=== PATIENT | female | born 1955 | race Caucasian/White ===

== ENCOUNTER 2017-07-04 11:32 | Inpatient (IN) | payer OTHER ==
[~2017-07-04] VITALS: Ht 157.5 cm; Wt 59.6 kg
[2017-07-04] MEDS ORDERED: COR3 PO (13:14)
[2017-07-04] MEDS ORDERED: PHOSLO667 MG PO (13:14)
[2017-07-04] MEDS ORDERED: NEPHRO-VITE VITA1 EA PO (13:15)
[2017-07-04] MEDS ORDERED: JANUVIA100 M1 PO (13:15)
[2017-07-04] MEDS ORDERED: METFORMIN500 M1 PO (13:15)
[2017-07-04] MEDS ORDERED: MOT600 PO (13:16)
[2017-07-04] MEDS ORDERED: D3-50001 TAB PO (13:16)
[2017-07-04] MEDS ORDERED: NOR10 PO (13:17)
[2017-07-04 13:29] LABS: BASOPHIL % 0.6 % (0-2); PLATELET COUNT 219 x10^3mcL (130-400)
[2017-07-04 13:39] LABS: RED CELL DISTRIBUTION WIDTH 14.7 % (11.5-14.5)
[2017-07-04 13:50] LABS: ALBUMIN 3.4 g/dL (3.4-5.0); BILIRUBIN TOTAL 0.5 mg/dL (0.20-1.00); CALCIUM 9.2 mg/dL (8.5-10.1); CARBON DIOXIDE 32.9 mmol/L (21-32); POTASSIUM SERUM 4.4 mmol/L (3.5-5.1); TOTAL PROTEIN, SERUM 7.3 g/dL (6.4-8.2)
[2017-07-04 13:57] LABS: CREATININE SERUM 5.6 mg/dL (0.6-1.0)
[2017-07-04 13:58] LABS: FREE T4 1.26 ng/dL (0.76-1.46); FREE THYROXINE INDEX 3.1 ug/dL (1.4-4.5); T4(THYROXINE) 8.9 ug/dL (4.7-13.3)
[2017-07-04 14:21] LABS: T3 TOTAL 0.88 ng/mL
[2017-07-04 14:24] LABS: MAGNESIUM 2.3 mg/dL (1.8-2.4); PHOSPHOROUS 3.1 mg/dL (2.5-4.9)
[2017-07-04 15:29] VITALS: BP 158/60
[2017-07-04 18:31] VITALS: BP 156/64
[2017-07-04 21:21] VITALS: BP 146/60
[2017-07-04 22:46] VITALS: BP 154/89
[2017-07-04 23:15] VITALS: BP 162/68
[2017-07-05 07:34] LABS: CALCIUM 9.5 mg/dL (8.5-10.1); CARBON DIOXIDE 30.2 mmol/L (21-32); URIC ACID 5.3 mg/dL (2.6-6.0)
[2017-07-05 07:34] LABS: microscopic required? YES; urine erythrocyte TRACE (NEGATIVE)
[2017-07-05 07:42] LABS: AMPHETAMINE QUAL UR NONE DETECTED (NEG <=1000)
[2017-07-05 07:58] LABS: CREATININE SERUM 6.6 mg/dL (0.6-1.0)
[2017-07-05 16:38] VITALS: BP 153/63
[2017-07-05 21:38] VITALS: BP 131/57
[2017-07-06 05:07] VITALS: BP 133/53
[2017-07-06 06:42] LABS: BASOPHIL % 0.3 % (0-2); PLATELET COUNT 235 x10^3mcL (130-400)
[2017-07-06 07:05] LABS: RED CELL DISTRIBUTION WIDTH 15.5 % (11.5-14.5)
[2017-07-06 07:52] LABS: CALCIUM 9.4 mg/dL (8.5-10.1); CARBON DIOXIDE 25.9 mmol/L (21-32); MAGNESIUM 2.1 mg/dL (1.8-2.4); PHOSPHOROUS 4.1 mg/dL (2.5-4.9); POTASSIUM SERUM 3.6 mmol/L (3.5-5.1)
[2017-07-06 07:54] LABS: CREATININE SERUM 4.6 mg/dL (0.6-1.0)
[2017-07-06 09:32] VITALS: BP 147/60
[2017-07-06 13:22] VITALS: BP 162/63
[2017-07-06 17:11] VITALS: BP 113/62
[2017-07-06 21:18] VITALS: BP 145/55
[2017-07-07 05:25] VITALS: BP 134/52
[2017-07-07 06:11] LABS: BASOPHIL % 0.6 % (0-2); PLATELET COUNT 211 x10^3mcL (130-400)
[2017-07-07 06:34] LABS: CALCIUM 9.2 mg/dL (8.5-10.1); POTASSIUM SERUM 3.8 mmol/L (3.5-5.1)
[2017-07-07 06:45] LABS: MAGNESIUM 2.1 mg/dL (1.8-2.4); PHOSPHOROUS 3.8 mg/dL (2.5-4.9)
[2017-07-07 07:09] LABS: RED CELL DISTRIBUTION WIDTH 15.2 % (11.5-14.5)
[2017-07-07 07:20] LABS: CREATININE SERUM 6.1 mg/dL (0.6-1.0)
[2017-07-07 09:49] VITALS: BP 135/58
[2017-07-07 14:00] VITALS: BP 150/59
[2017-07-07 18:00] VITALS: BP 156/60
[2017-07-07 21:47] VITALS: BP 151/64
[2017-07-08 05:40] VITALS: BP 170/60
[2017-07-08 06:45] LABS: BASOPHIL % 0.5 % (0-2); PLATELET COUNT 208 x10^3mcL (130-400)
[2017-07-08 07:24] LABS: RED CELL DISTRIBUTION WIDTH 15.1 % (11.5-14.5)
[2017-07-08 07:47] LABS: CALCIUM 9.6 mg/dL (8.5-10.1); CARBON DIOXIDE 31.8 mmol/L (21-32); MAGNESIUM 1.9 mg/dL (1.8-2.4); PHOSPHOROUS 3.1 mg/dL (2.5-4.9); POTASSIUM SERUM 3.4 mmol/L (3.5-5.1)
[2017-07-08 08:02] LABS: CREATININE SERUM 4.7 mg/dL (0.6-1.0)
[2017-07-08 09:00] VITALS: BP 155/59
[2017-07-08 18:42] VITALS: BP 140/54
[2017-07-08 21:27] VITALS: BP 144/59
[2017-07-09 06:34] LABS: BASOPHIL % 0.7 % (0-2); PLATELET COUNT 215 x10^3mcL (130-400)
[2017-07-09 06:40] LABS: RED CELL DISTRIBUTION WIDTH 14.7 % (11.5-14.5)
[2017-07-09 06:43] VITALS: BP 148/51
[2017-07-09 06:52] LABS: CALCIUM 9.8 mg/dL (8.5-10.1); CARBON DIOXIDE 30.4 mmol/L (21-32); PHOSPHOROUS 4.1 mg/dL (2.5-4.9); POTASSIUM SERUM 3.9 mmol/L (3.5-5.1)
[2017-07-09 06:58] LABS: CREATININE SERUM 6.4 mg/dL (0.6-1.0)
[2017-07-09 10:08] VITALS: BP 123/78
[2017-07-09 14:03] VITALS: BP 123/78
[2017-07-09] MEDS ORDERED: BEN25 PO (15:06)
[2017-07-09] MEDS ORDERED: HEP5I SC (15:06)
[2017-07-09] MEDS ORDERED: PRO4I SC (15:06)
== END 2017-07-09 16:40 | DRG 492 ==
LOC: ED 11:32 → DU 12:59 → MU 07-09 12:50
PROVIDERS: Family Medicine Sports Medicine; Internal Medicine; Podiatrist Foot & Ankle Surgery; Specialist; ADMIT Family Medicine
PROC: 0QSG04Z Reposition Right Tibia with Internal Fixation Device, Open Approach (ICD-10-PCS; 2017-07-05)
PROC: 0QSJ04Z Reposition Right Fibula with Internal Fixation Device, Open Approach (ICD-10-PCS; principal; 2017-07-05 09:30)
DX: S82.841A Displaced bimalleolar fracture of right lower leg, initial encounter for closed fracture (principal); N17.0 Acute kidney failure with tubular necrosis; N18.6 End stage renal disease; I12.0 Hypertensive chronic kidney disease with stage 5 chronic kidney disease or end stage renal disease; E44.1 Mild protein-calorie malnutrition; E11.21 Type 2 diabetes mellitus with diabetic nephropathy; D64.9 Anemia, unspecified; E78.1 Pure hyperglyceridemia; Z99.2 Dependence on renal dialysis; Z79.84 Long term (current) use of oral hypoglycemic drugs; Z68.27 Body mass index [BMI] 27.0-27.9, adult; X58.XXXA Exposure to other specified factors, initial encounter; Y92.9 Unspecified place or not applicable
CPT/HCPCS: 82962; 83880; 84439; 94150; 97110-GP; 97116-GP; 97530-GP; A4719; C1713; J0690; J0885-EC; J1644; J2001; J2250; J2270; J2405; J2704; J3010; J3490; J7030; Q0092

== ENCOUNTER 2017-09-16 00:07 | Emergency (ER) | payer OTHER ==
[~2017-09-16 00:07] MED LIST: BEN25 PO; COR3 PO; D3-50001 TAB PO; HEP5I SC; JANUVIA100 M1 PO; METFORMIN500 M1 PO; MOT600 PO; NEPHRO-VITE VITA1 EA PO; NOR10 PO; PHOSLO667 MG PO; PRO4I SC
[2017-09-16 02:06] LABS: PLATELET COUNT 246 x10^3mcL (130-400); RED CELL DISTRIBUTION WIDTH 14.4 % (11.5-14.5)
[2017-09-16 02:08] LABS: BASOPHIL % 3.5 % (0-2)
[2017-09-16 02:13] LABS: ALBUMIN 3.6 g/dL (3.4-5.0); BILIRUBIN TOTAL 0.28 mg/dL (0.20-1.00); CALCIUM 9.6 mg/dL (8.5-10.1); CARBON DIOXIDE 26.5 mmol/L (21-32); POTASSIUM SERUM 5.1 mmol/L (3.5-5.1); TOTAL PROTEIN, SERUM 7.5 g/dL (6.4-8.2)
[2017-09-16 02:15] LABS: CREATININE SERUM 5.8 mg/dL (0.6-1.0)
[2017-09-16 03:19] VITALS: BP 153/68
== END 2017-09-16 03:36 | disposition home or self-care (01) ==
LOC: ED 00:07
PROVIDERS: Emergency Medicine
DX: K52.9 Noninfective gastroenteritis and colitis, unspecified (principal); I10 Essential (primary) hypertension; E11.9 Type 2 diabetes mellitus without complications; Z88.0 Allergy status to penicillin
CPT/HCPCS: 82962; J7030

== ENCOUNTER 2018-02-17 06:48 | Inpatient (IN) | payer OTHER ==
[~2018-02-17] VITALS: Ht 154.9 cm; Wt 57.4 kg
[2018-02-17 07:31] LABS: BASOPHIL % 1.1 % (0-2); PLATELET COUNT 259 x10^3mcL (130-400)
[2018-02-17 07:32] LABS: RED CELL DISTRIBUTION WIDTH 17.5 % (11.5-14.5)
[2018-02-17 08:01] LABS: ALBUMIN 3.4 g/dL (3.4-5.0); BILIRUBIN TOTAL 0.46 mg/dL (0.20-1.00); CALCIUM 9.1 mg/dL (8.5-10.1); CARBON DIOXIDE 28.9 mmol/L (21-32); POTASSIUM SERUM 4.7 mmol/L (3.5-5.1); TOTAL PROTEIN, SERUM 7.1 g/dL (6.4-8.2)
[2018-02-17 08:03] LABS: CREATININE SERUM 5.2 mg/dL (0.6-1.0)
[2018-02-17 08:05] LABS: CK-MB 0.6 ng/mL (0-3.6)
[2018-02-17 08:06] LABS: FREE T4 0.88 ng/dL (0.76-1.46); FREE THYROXINE INDEX 2.4 ug/dL (1.4-4.5); T4(THYROXINE) 7.2 ug/dL (4.7-13.3)
[2018-02-17 08:08] LABS: T3 TOTAL 0.92 ng/mL
[2018-02-17] MEDS ORDERED: DIALYVITE 8001 TAB PO (08:41)
[2018-02-17] MEDS ORDERED: ASPIR 8181 MG PO (08:41)
[2018-02-17] MEDS ORDERED: ELIQUIS5 MG PO (08:43)
[2018-02-17] MEDS ORDERED: CLEOCIN HCL300 MG PO (08:43)
[2018-02-17] MEDS ORDERED: TRAMADOL HCL50 MG PO (08:43)
[2018-02-17] MEDS ORDERED: PLA75 PO (08:43)
[2018-02-17] MEDS ORDERED: ALPOS OU (08:44)
[2018-02-17] MEDS ORDERED: [UNRECOGNIZED DRUG - OTHER] PO (08:44)
[2018-02-17] MEDS ORDERED: COLACE100 MG PO (08:45)
[2018-02-17] MEDS ORDERED: RENVELA800 M1 PO (08:45)
[2018-02-17] MEDS ORDERED: LATANOPROST2.5 ML OU (08:45)
[2018-02-17 09:00] LABS: microscopic required? YES; urine erythrocyte TRACE (NEGATIVE)
[2018-02-17 09:40] LABS: ERYTHROCYTE SED RATE 57 mm/hr (0-30)
[2018-02-17 12:11] VITALS: BP 145/68
[2018-02-17 12:22] LABS: MAGNESIUM 2.4 mg/dL (1.8-2.4); PHOSPHOROUS 3.2 mg/dL (2.5-4.9)
[2018-02-17 13:30] VITALS: BP 139/53
[2018-02-17 13:37] LABS: CHOLESTEROL/HDL RATIO 3.1
[2018-02-17 15:02] LABS: AMPHETAMINE QUAL UR NONE DETECTED (See below)
[2018-02-17 16:53] VITALS: BP 147/50
[2018-02-17 21:23] VITALS: BP 147/49
[2018-02-18 05:17] VITALS: BP 150/57
[2018-02-18 05:43] LABS: BASOPHIL % 0.7 % (0-2); PLATELET COUNT 233 x10^3mcL (130-400)
[2018-02-18 05:51] LABS: RED CELL DISTRIBUTION WIDTH 17.6 % (11.5-14.5)
[2018-02-18 05:57] LABS: CALCIUM 8.8 mg/dL (8.5-10.1); CARBON DIOXIDE 25.4 mmol/L (21-32); MAGNESIUM 2.8 mg/dL (1.8-2.4); PHOSPHOROUS 4.2 mg/dL (2.5-4.9)
[2018-02-18 06:02] LABS: CREATININE SERUM 6.2 mg/dL (0.6-1.0)
[2018-02-18 09:13] VITALS: BP 151/51
[2018-02-18 17:30] VITALS: BP 168/62
[2018-02-18 21:00] VITALS: BP 165/62
[2018-02-19 03:49] VITALS: BP 148/55
[2018-02-19 05:16] VITALS: BP 162/72
[2018-02-19 05:37] LABS: BASOPHIL % 0.4 % (0-2); CALCIUM 8.7 mg/dL (8.5-10.1); CREATININE SERUM 3.8 mg/dL (0.6-1.0); PLATELET COUNT 254 x10^3mcL (130-400)
[2018-02-19 06:26] LABS: RED CELL DISTRIBUTION WIDTH 17.9 % (11.5-14.5)
[2018-02-19 08:33] VITALS: BP 163/62
[2018-02-19 13:23] VITALS: BP 134/53
[2018-02-19 17:23] VITALS: BP 138/64
[2018-02-19 20:35] VITALS: BP 128/53
[2018-02-20 05:39] VITALS: BP 155/51
[2018-02-20 05:59] LABS: BASOPHIL % 0.7 % (0-2); PLATELET COUNT 207 x10^3mcL (130-400)
[2018-02-20 06:35] LABS: RED CELL DISTRIBUTION WIDTH 18.2 % (11.5-14.5)
[2018-02-20 06:42] LABS: CALCIUM 8.4 mg/dL (8.5-10.1); POTASSIUM SERUM 4.4 mmol/L (3.5-5.1)
[2018-02-20 06:44] LABS: CREATININE SERUM 5.5 mg/dL (0.6-1.0)
[2018-02-20 09:20] VITALS: BP 124/51
[2018-02-20 13:16] VITALS: BP 132/52
[2018-02-20 13:22] VITALS: BP 124/51
[2018-02-20] MEDS ORDERED: PHE25I IV (14:10)
[2018-02-20] MEDS ORDERED: LIPI10 PO (14:12)
[2018-02-20] MEDS ORDERED: APAP/HYDROCODON1 T13 PO (14:12)
[2018-02-20] MEDS ORDERED: NEU100 PO (14:13)
[2018-02-20] MEDS ORDERED: NEP PO (14:15)
[2018-02-20] MEDS ORDERED: SYN5 PO (14:15)
== END 2018-02-20 17:11 | disposition home or self-care (01) | DRG 239 ==
LOC: ED 06:48 → DU 08:56
PROVIDERS: General Practice; Internal Medicine; Podiatrist Foot & Ankle Surgery; Specialist
PROC: 0Y6M0ZB Detachment at Right Foot, Partial 2nd Ray, Open Approach (ICD-10-PCS; 2018-02-18)
PROC: 0Y6M0ZC Detachment at Right Foot, Partial 3rd Ray, Open Approach (ICD-10-PCS; 2018-02-18)
PROC: 0Y6M0ZD Detachment at Right Foot, Partial 4th Ray, Open Approach (ICD-10-PCS; 2018-02-18)
PROC: 0Y6M0ZF Detachment at Right Foot, Partial 5th Ray, Open Approach (ICD-10-PCS; 2018-02-18)
PROC: 0L8N0ZZ Division of Right Lower Leg Tendon, Open Approach (ICD-10-PCS; 2018-02-18)
PROC: 0Y6M0Z9 Detachment at Right Foot, Partial 1st Ray, Open Approach (ICD-10-PCS; principal; 2018-02-18 13:00)
DX: E11.52 Type 2 diabetes mellitus with diabetic peripheral angiopathy with gangrene (principal); N18.6 End stage renal disease; N17.0 Acute kidney failure with tubular necrosis; I12.0 Hypertensive chronic kidney disease with stage 5 chronic kidney disease or end stage renal disease; I96 Gangrene, not elsewhere classified; E11.22 Type 2 diabetes mellitus with diabetic chronic kidney disease; I82.402 Acute embolism and thrombosis of unspecified deep veins of left lower extremity; K59.00 Constipation, unspecified; E11.42 Type 2 diabetes mellitus with diabetic polyneuropathy; E11.65 Type 2 diabetes mellitus with hyperglycemia; E03.9 Hypothyroidism, unspecified; Z68.23 Body mass index [BMI] 23.0-23.9, adult; Z99.2 Dependence on renal dialysis; Z88.0 Allergy status to penicillin; Z79.84 Long term (current) use of oral hypoglycemic drugs
CPT/HCPCS: 36600; 83880; 84439; 97535-GP; J0885-EC; J1170; J1644; J1815; J2270; J2405; J2550; J2704; J3010; J3490; J7030; J7050; Q0092

== ENCOUNTER 2018-03-23 15:03 | Inpatient (IN) | payer OTHER ==
[~2018-03-23] VITALS: Ht 147.3 cm; Wt 55.9 kg
[~2018-03-23 15:03] MED LIST changes: +ALPOS OU; +APAP/HYDROCODON1 T13 PO; +ASPIR 8181 MG PO; +CLEOCIN HCL300 MG PO; +COLACE100 MG PO; +DIALYVITE 8001 TAB PO; +ELIQUIS5 MG PO; +LATANOPROST2.5 ML OU; +LIPI10 PO; +NEP PO; +NEU100 PO; +PHE25I IV; +PLA75 PO; +RENVELA800 M1 PO; +SYN5 PO; +TRAMADOL HCL50 MG PO; +[UNRECOGNIZED DRUG - OTHER] PO
[2018-03-23 15:29] VITALS: Ht 147.3 cm; Wt 55.9 kg
[2018-03-23 16:49] LABS: BASOPHIL % 0.4 % (0-2); PLATELET COUNT 296 x10^3mcL (130-400)
[2018-03-23 17:00] LABS: RED CELL DISTRIBUTION WIDTH 19.8 % (11.5-14.5)
[2018-03-23 17:19] LABS: BILIRUBIN TOTAL 0.37 mg/dL (0.20-1.00); CALCIUM 8.7 mg/dL (8.5-10.1); CARBON DIOXIDE 28.2 mmol/L (21-32); T4(THYROXINE) 7.2 ug/dL (4.7-13.3); TOTAL PROTEIN, SERUM 6.9 g/dL (6.4-8.2)
[2018-03-23 17:20] LABS: ALBUMIN 2.8 g/dL (3.4-5.0)
[2018-03-23 17:21] LABS: CREATININE SERUM 4.3 mg/dL (0.6-1.0)
[2018-03-23 18:00] LABS: UA SPECIFIC GRAVITY 1.015 (1.005-1.035); microscopic required? YES; urine erythrocyte NEGATIVE (NEGATIVE)
[2018-03-23] MEDS ORDERED: PERCOCET1 TA5 (19:47)
[2018-03-23] MEDS ORDERED: RENVELA800 M1 (19:48)
[2018-03-23 20:32] LABS: MAGNESIUM 2.4 mg/dL (1.8-2.4); PHOSPHOROUS 2.2 mg/dL (2.5-4.9)
[2018-03-23 20:33] LABS: CHOLESTEROL/HDL RATIO 1.7
[2018-03-23 20:36] LABS: T3 TOTAL 0.66 ng/mL
[2018-03-23 20:41] LABS: FREE T4 1.15 ng/dL (0.76-1.46); FREE THYROXINE INDEX 2.6 ug/dL (1.4-4.5); T4(THYROXINE) 6.9 ug/dL (4.7-13.3)
[2018-03-23 21:11] VITALS: BP 149/59
[2018-03-24 07:59] LABS: BASOPHIL % 0.7 % (0-2); PLATELET COUNT 262 x10^3mcL (130-400)
[2018-03-24 08:03] LABS: RED CELL DISTRIBUTION WIDTH 19.6 % (11.5-14.5)
[2018-03-24 08:04] LABS: CARBON DIOXIDE 25.2 mmol/L (21-32); MAGNESIUM 2.3 mg/dL (1.8-2.4); PHOSPHOROUS 3.2 mg/dL (2.5-4.9); POTASSIUM SERUM 5.1 mmol/L (3.5-5.1)
[2018-03-24 08:07] LABS: CREATININE SERUM 4.8 mg/dL (0.6-1.0)
[2018-03-24 09:24] VITALS: BP 174/65
[2018-03-24 14:01] VITALS: BP 170/65
[2018-03-24 17:49] VITALS: BP 130/54
[2018-03-24 20:33] VITALS: BP 145/53
[2018-03-25 05:19] VITALS: BP 134/55
[2018-03-25 07:52] LABS: BASOPHIL % 0.6 % (0-2); CALCIUM 8.2 mg/dL (8.5-10.1); CARBON DIOXIDE 22.3 mmol/L (21-32); PLATELET COUNT 308 x10^3mcL (130-400); POTASSIUM SERUM 5.4 mmol/L (3.5-5.1); RED CELL DISTRIBUTION WIDTH 20.6 % (11.5-14.5)
[2018-03-25 07:55] LABS: CREATININE SERUM 5.9 mg/dL (0.6-1.0)
[2018-03-25 09:02] LABS: rbc morphology (normal/abnorm) ABNORMAL (NORMAL)
[2018-03-25 10:02] VITALS: BP 172/61
[2018-03-25 16:28] VITALS: BP 104/43
[2018-03-25 21:04] VITALS: BP 114/46
[2018-03-26 06:22] VITALS: BP 119/56
[2018-03-26 07:11] LABS: CALCIUM 7.9 mg/dL (8.5-10.1); CARBON DIOXIDE 27.5 mmol/L (21-32); POTASSIUM SERUM 3.7 mmol/L (3.5-5.1)
[2018-03-26 07:12] LABS: BASOPHIL % 0.7 % (0-2); PLATELET COUNT 269 x10^3mcL (130-400)
[2018-03-26 07:18] LABS: RED CELL DISTRIBUTION WIDTH 20.7 % (11.5-14.5)
[2018-03-26 09:16] VITALS: BP 123/51
[2018-03-26 09:23] LABS: rbc morphology (normal/abnorm) ABNORMAL (NORMAL); tear drop cell (dacryocyte) 1+
[2018-03-26 12:52] VITALS: BP 135/53
[2018-03-26 16:12] VITALS: BP 135/58
[2018-03-26 21:10] VITALS: BP 146/56
[2018-03-27 06:03] VITALS: BP 155/61
[2018-03-27 07:24] LABS: BASOPHIL % 0.6 % (0-2); PLATELET COUNT 249 x10^3mcL (130-400)
[2018-03-27 07:42] LABS: RED CELL DISTRIBUTION WIDTH 20.3 % (11.5-14.5)
[2018-03-27 07:49] LABS: rbc morphology (normal/abnorm) ABNORMAL (NORMAL)
[2018-03-27 07:50] LABS: tear drop cell (dacryocyte) 1+
[2018-03-27 08:13] LABS: CARBON DIOXIDE 24.2 mmol/L (21-32); MAGNESIUM 2.1 mg/dL (1.8-2.4); PHOSPHOROUS 2.7 mg/dL (2.5-4.9); POTASSIUM SERUM 3.8 mmol/L (3.5-5.1)
[2018-03-27 08:15] LABS: CREATININE SERUM 5.6 mg/dL (0.6-1.0)
[2018-03-27 09:20] VITALS: BP 161/66
[2018-03-27 14:21] VITALS: BP 155/61
[2018-03-27 18:27] VITALS: BP 166/62
[2018-03-27 20:37] VITALS: BP 143/59
[2018-03-28 05:24] VITALS: BP 143/60
[2018-03-28 09:21] VITALS: BP 135/63
[2018-03-28 12:15] VITALS: BP 118/52
[2018-03-28 17:22] VITALS: BP 132/63
[2018-03-28 20:42] VITALS: BP 112/46
[2018-03-29] VITALS (10 sets, daily range): BP systolic 95–179; BP diastolic 41–73
[2018-03-29 06:22] LABS: BASOPHIL % 0.3 % (0-2); PLATELET COUNT 244 x10^3mcL (130-400)
[2018-03-29 06:38] LABS: CALCIUM 7.8 mg/dL (8.5-10.1); CARBON DIOXIDE 26.2 mmol/L (21-32); POTASSIUM SERUM 3.8 mmol/L (3.5-5.1)
[2018-03-29 06:41] LABS: CREATININE SERUM 5.2 mg/dL (0.6-1.0)
[2018-03-29 06:47] LABS: RED CELL DISTRIBUTION WIDTH 20.4 % (11.5-14.5)
[2018-03-29 06:48] LABS: rbc morphology (normal/abnorm) ABNORMAL (NORMAL)
[2018-03-30 06:12] LABS: BASOPHIL % 0.5 % (0-2); PLATELET COUNT 217 x10^3mcL (130-400)
[2018-03-30 06:20] VITALS: BP 109/53
[2018-03-30 06:40] LABS: CALCIUM 7.2 mg/dL (8.5-10.1); CARBON DIOXIDE 26.2 mmol/L (21-32); CREATININE SERUM 3.9 mg/dL (0.6-1.0); POTASSIUM SERUM 3.7 mmol/L (3.5-5.1)
[2018-03-30 09:15] VITALS: BP 135/64
[2018-03-30 12:18] VITALS: BP 101/45
[2018-03-30 16:17] VITALS: BP 124/47
[2018-03-30 21:17] VITALS: BP 141/56
[2018-03-31 05:34] VITALS: BP 135/62
[2018-03-31 08:58] VITALS: BP 131/56
[2018-03-31 12:30] VITALS: BP 103/51
[2018-03-31 16:08] VITALS: BP 104/45
[2018-03-31 21:42] VITALS: BP 124/48
[2018-04-01 05:51] VITALS: BP 124/43
[2018-04-01 06:05] VITALS: BP 91/46
[2018-04-01 06:38] LABS: CALCIUM 7.6 mg/dL (8.5-10.1); CARBON DIOXIDE 23.9 mmol/L (21-32); PHOSPHOROUS 3.1 mg/dL (2.5-4.9); POTASSIUM SERUM 3.3 mmol/L (3.5-5.1)
[2018-04-01 06:51] LABS: BASOPHIL % 0.9 % (0-2); CREATININE SERUM 5.6 mg/dL (0.6-1.0); PLATELET COUNT 259 x10^3mcL (130-400)
[2018-04-01 07:08] LABS: RED CELL DISTRIBUTION WIDTH 17.9 % (11.5-14.5)
[2018-04-01 07:14] LABS: rbc morphology (normal/abnorm) ABNORMAL (NORMAL)
[2018-04-01 08:59] VITALS: BP 109/54
[2018-04-01 13:14] VITALS: BP 110/51
[2018-04-01 17:32] VITALS: BP 133/54
[2018-04-01 20:14] VITALS: BP 144/63
[2018-04-02 05:58] VITALS: BP 122/63
[2018-04-02 07:07] LABS: BASOPHIL % 0.6 % (0-2); PLATELET COUNT 248 x10^3mcL (130-400)
[2018-04-02 07:12] LABS: RED CELL DISTRIBUTION WIDTH 16.3 % (11.5-14.5)
[2018-04-02 07:14] LABS: CALCIUM 7.7 mg/dL (8.5-10.1); CARBON DIOXIDE 26.6 mmol/L (21-32); CREATININE SERUM 3.5 mg/dL (0.6-1.0); MAGNESIUM 1.7 mg/dL (1.8-2.4); PHOSPHOROUS 1.8 mg/dL (2.5-4.9); POTASSIUM SERUM 3.6 mmol/L (3.5-5.1)
[2018-04-02 08:48] VITALS: BP 128/55
[2018-04-02 12:23] VITALS: BP 109/54
[2018-04-02] MEDS ORDERED: ULT50 PO (12:35)
[2018-04-02] MEDS ORDERED: NEU100 PO (12:35)
[2018-04-02] MEDS ORDERED: BACTRIM DS1 TAB PO (12:38)
[2018-04-02 16:00] VITALS: BP 122/61
== END 2018-04-02 18:34 | DRG 239 ==
LOC: ED 15:03 → DU 18:48
PROVIDERS: Emergency Medicine; Family Medicine; Internal Medicine; Internal Medicine Gastroenterology; Neuromusculoskeletal Medicine, Sports Medicine
PROC: 0DB48ZZ Excision of Esophagogastric Junction, Via Natural or Artificial Opening Endoscopic (ICD-10-PCS; principal; 2018-03-25 11:45)
PROC: 0DB68ZX Excision of Stomach, Via Natural or Artificial Opening Endoscopic, Diagnostic (ICD-10-PCS; 2018-03-25 11:45)
PROC: 0Y6H0Z1 Detachment at Right Lower Leg, High, Open Approach (ICD-10-PCS; 2018-03-29)
DX: E11.52 Type 2 diabetes mellitus with diabetic peripheral angiopathy with gangrene (principal); K29.01 Acute gastritis with bleeding; N18.6 End stage renal disease; N17.0 Acute kidney failure with tubular necrosis; E43 Unspecified severe protein-calorie malnutrition; I96 Gangrene, not elsewhere classified; M86.9 Osteomyelitis, unspecified; I12.0 Hypertensive chronic kidney disease with stage 5 chronic kidney disease or end stage renal disease; E87.1 Hypo-osmolality and hyponatremia; Z68.1 Body mass index [BMI] 19.9 or less, adult; E11.69 Type 2 diabetes mellitus with other specified complication; K21.9 Gastro-esophageal reflux disease without esophagitis; K31.7 Polyp of stomach and duodenum; E11.22 Type 2 diabetes mellitus with diabetic chronic kidney disease; E11.42 Type 2 diabetes mellitus with diabetic polyneuropathy; E11.65 Type 2 diabetes mellitus with hyperglycemia; M81.0 Age-related osteoporosis without current pathological fracture; D64.9 Anemia, unspecified; R80.9 Proteinuria, unspecified; E78.5 Hyperlipidemia, unspecified; E03.9 Hypothyroidism, unspecified; Z99.2 Dependence on renal dialysis; Z89.431 Acquired absence of right foot; Z79.82 Long term (current) use of aspirin; Z79.84 Long term (current) use of oral hypoglycemic drugs; Z87.891 Personal history of nicotine dependence
CPT/HCPCS: 43235; 83880; 84439; 94150; 97110-GP; 97116-GP; 97530-GP; 97535-GP; 97542-GP; A4719; C9113; J0690; J0696; J0885-EC; J1170; J1200; J1610; J1885; J2060; J2250; J2310; J2550; J2704; J2765; J3010; J3490; J7030; J7040; J7050; P9016; Q0092; Q0162

== ENCOUNTER 2020-07-16 23:08 | Emergency (ER) | payer OTHER ==
[~2020-07-16] VITALS: Ht 154.9 cm; Wt 67.1 kg
[~2020-07-16 23:08] MED LIST changes: +BACTRIM DS1 TAB PO; +PERCOCET1 TA5; +RENVELA800 M1; +ULT50 PO
[2020-07-16 23:14] VITALS: Ht 154.9 cm; Wt 67.1 kg
[2020-07-17 00:33] LABS: BASOPHIL % 0.6 % (0-2); PLATELET COUNT 201 x10^3mcL (130-400); RED CELL DISTRIBUTION WIDTH 16.9 % (11.5-14.5)
[2020-07-17 01:15] LABS: ALBUMIN 3.7 g/dL (3.4-5.0); BILIRUBIN TOTAL 0.4 mg/dL (0.20-1.00); CALCIUM 8.9 mg/dL (8.5-10.1); CARBON DIOXIDE 32.3 mmol/L (21-32); POTASSIUM SERUM 3.4 mmol/L (3.5-5.1); TOTAL PROTEIN, SERUM 7.7 g/dL (6.4-8.2)
[2020-07-17 01:17] LABS: CREATININE SERUM 4.4 mg/dL (0.6-1.0)
[2020-07-17 03:36] LABS: microscopic required? YES; urine erythrocyte TRACE (NEGATIVE)
[2020-07-17 04:16] VITALS: BP 124/67
== END 2020-07-17 04:16 | disposition home or self-care (01) ==
LOC: ED 23:08
PROVIDERS: Emergency Medicine
DX: E11.621 Type 2 diabetes mellitus with foot ulcer (principal); I10 Essential (primary) hypertension; E03.9 Hypothyroidism, unspecified; Z86.2 Personal history of diseases of the blood and blood-forming organs and certain disorders involving the immune mechanism; Z20.828 Contact with and (suspected) exposure to other viral communicable diseases; Z98.890 Other specified postprocedural states; Z88.0 Allergy status to penicillin; Z90.49 Acquired absence of other specified parts of digestive tract
CPT/HCPCS: J3370